=== PATIENT | female | born 1995 | race African-American/Black ===

== ENCOUNTER → 2020-09-25 08:28 | Outpatient (BNVA) | payer OTHER, SELFPAY | PROVIDERS: PCP Physician Assistant; Visit Provider Advanced Practice Midwife | DX: R10.2 Pelvic and perineal pain (principal) | CPT/HCPCS: 99202 ==

== ENCOUNTER 2020-10-12 15:17 | Outpatient (REF) | payer OTHER, SELFPAY ==
--- NOTE | 2020-10-12 15:21 | US_ITS ---
EXAMINATION: US PELVIS COMPLETE CLINICAL INFORMATION: Pelvic pain. COMPARISON: None TECHNIQUE: Transabdominal and transvaginal imaging of pelvis is performed. FINDINGS: The uterus is retroverted measuring 7.9 cm in length, 4.0 cm in AP and 5.4 cm in transverse dimension. Endometrial thickness measures 1.4 cm. No focal lesion seen. Right ovary measures 2.6 x 2.4 x 1.5 cm and volume 4.9 mL. Left ovary measures 3.3 x 2.9 x 2.0 cm and volume 10.0 mL. There is a small involuting corpus luteal cyst. There is a small amount of free fluid in the cul-de-sac. US/US transvaginal IMPRESSION: Unremarkable uterus. Thickened endometrium appropriate for patient's age. Involuting corpus luteum cyst left ovary. The right ovary is unremarkable. Small amount of free fluid in the cul-de-sac.
--- NOTE | 2020-10-12 15:21 | US_ITS ---
EXAMINATION: US PELVIS COMPLETE CLINICAL INFORMATION: Pelvic pain. COMPARISON: None TECHNIQUE: Transabdominal and transvaginal imaging of pelvis is performed. FINDINGS: The uterus is retroverted measuring 7.9 cm in length, 4.0 cm in AP and 5.4 cm in transverse dimension. Endometrial thickness measures 1.4 cm. No focal lesion seen. Right ovary measures 2.6 x 2.4 x 1.5 cm and volume 4.9 mL. Left ovary measures 3.3 x 2.9 x 2.0 cm and volume 10.0 mL. There is a small involuting corpus luteal cyst. There is a small amount of free fluid in the cul-de-sac. US/US pelvic complete IMPRESSION: Unremarkable uterus. Thickened endometrium appropriate for patient's age. Involuting corpus luteum cyst left ovary. The right ovary is unremarkable. Small amount of free fluid in the cul-de-sac.
== END 2020-10-12 15:18 | disposition home or self-care (01) ==
LOC: HO.US 15:17
PROVIDERS: Visit Provider Advanced Practice Midwife
DX: R10.2 Pelvic and perineal pain (principal)
CPT/HCPCS: 76830; 76856

== ENCOUNTER → 2020-10-19 15:29 | Outpatient (BNVA) | payer OTHER, SELFPAY | PROVIDERS: Visit Provider Advanced Practice Midwife | DX: Z76.89 Persons encountering health services in other specified circumstances (principal) ==